=== PATIENT | male | born 1975 | race African-American/Black ===

== ENCOUNTER 2021-12-25 17:59 | Emergency (ER) | payer SELFPAY ==
[~2021-12-25] VITALS: Ht 175.3 cm; Wt 89.0 kg
[2021-12-25] MEDS ORDERED: LACTULOSE 20G/30ML UDC PO ONE (18:30)
[2021-12-25 19:55] VITALS: BP 144/91
[2021-12-25] MEDS ORDERED: LACTULOSE 20G/30ML UDC PO NR (19:57)
[2021-12-25 20:11] LABS: BASOPHILS % 0.2 % (0.0-2.0); EOSINOPHILS % 0.1 % (0.0-5.0); HEMATOCRIT. 38.6 % (42.0-52.0); LYMPHOCYTES % 14.1 % (20.0-50.0); MEAN CORPUSCULAR VOLUME 91.8 fL (80.0-94.0); MEAN PLATELET VOLUME 8.8 fl (7.4-10.4); MONOCYTES % 8.5 % (2.0-8.0); NEUTROPHILS % 77.1 % (40.0-76.0); PLATELET 226 x1000/uL (130-400); RED CELL DISTRIBUTION WIDTH 13.4 % (11.6-14.6)
[2021-12-25 20:26] LABS: CHLORIDE 108 mEq/L (98-107)
[2021-12-25 20:51] LABS: CLARITY URINE CLEAR (CLEAR); COLOR URINE YELLOW (YELLOW); KETONES URINE NEGATIVE (NEGATIVE); LEUKOCYTE ESTERASE URINE NEGATIVE (NEGATIVE); NITRITE URINE NEGATIVE (NEGATIVE); OCCULT BLOOD URINE 1+ (NEGATIVE); PROTEIN URINE NEGATIVE (NEGATIVE); SPECIFIC GRAVITY URINE 1.012 (1.005-1.030); UROBILINOGEN URINE 0.2 E.U./dL (0.2-1.0)
== END 2021-12-25 22:09 | disposition home or self-care (01) ==
LOC: ER 17:59
DX: K56.41 Fecal impaction (principal); D64.9 Anemia, unspecified
CPT/HCPCS: 36415; 74018; 80053; 81003; 85025; 99284